=== PATIENT | male | born 1975 | race Caucasian/White ===

== ENCOUNTER 2016-12-02 11:30 | Inpatient (IN) | payer MEDICARE, OTHER ==
[~2016-12-02] VITALS: Ht 175.3 cm; Wt 135.2 kg
[~2016-12-02 11:30] MED LIST: ASPI-785; CARV25TA47 PO; HYDR-1348; KEPP500 PO; LISI10TA5 PO; LOSA25TA12 PO; SIMV20TA6 PO; WARF5TAB73 PO
[2016-12-02] MEDS ORDERED: ASPIRIN 325MG EC TABLET PO ONE (12:00)
[2016-12-02] MEDS ORDERED: MORPHINE SULFATE 4 MG/ML CPJ (NOT FOR IM USE) IV ONE (12:00)
[2016-12-02 12:34] LABS: EOSINOPHILS % 0.9 % (0.0-5.0); HEMATOCRIT. 45.3 % (42.0-52.0); HEMOGLOBIN. 15.2 g/dL (14.0-18.0); LYMPHOCYTES % 17.9 % (20.0-50.0); MEAN CORPUSCULAR HEMOGLOBIN 29.4 pg (28.0-32.0); MEAN CORPUSCULAR HGB CONC 33.6 g/dL (31.0-37.0); MEAN CORPUSCULAR VOLUME 87.6 fL (80.0-94.0); MEAN PLATELET VOLUME 8.5 fl (7.4-10.4); MONOCYTES % 10.2 % (2.0-8.0); PLATELET 262 x1000/uL (130-400); RED BLOOD CELL COUNT 5.17 mill/uL (4.7-6.1); RED CELL DISTRIBUTION WIDTH 14.4 % (11.6-14.6); WHITE BLOOD COUNT 12.3 x1000/uL (4.5-11.0)
[2016-12-02 12:42] LABS: INR 1.1
[2016-12-02 12:45] LABS: ALBUMIN 2.9 g/dL (3.4-5.0); ANION GAP 14; CALCIUM 8.6 mg/dL (8.5-10.1); CARBON DIOXIDE 26 mEq/L (21-32); CHLORIDE 99 mEq/L (98-107); INDEX HEMOLYSI 1 (1-3); INDEX ICTERIC 1 (1-4); INDEX LIPEMIC 1 (1-3); UREA NITROGEN BLOOD 12 mg/dL (7-21)
[2016-12-02 12:51] LABS: ALANINE AMINOTRANSFERASE 28 IU/L (13-61); NT PRO B-TYPE NATRIURETIC PEP 672 pg/mL (5-125); TROPONIN I 0.05 ng/mL (0.00-0.04); eGFR > 60 mL/min (>60)
[2016-12-02] MEDS ORDERED: DEXTROSE 50% WATER 50ML SYRINGE IV PRN ×2 (13:45→14:15)
[2016-12-02] MEDS ORDERED: IPRATROPIUM/ALBUTEROL 0.5-3(2.5)MG/3ML NEB INH PRN (14:15)
[2016-12-02] MEDS ORDERED: HYDROCODONE/ACETAMINOPHEN 5/325MG TABLET PO PRN (14:15)
[2016-12-02] MEDS ORDERED: CLONIDINE 0.1MG TABLET PO PRN (14:15)
[2016-12-02] MEDS ORDERED: ACETAMINOPHEN 325MG TABLET PO PRN (14:15)
[2016-12-02] MEDS ORDERED: ONDANSETRON HCL 4MG/2ML VIAL IV PRN (14:15)
[2016-12-02] MEDS ORDERED: DIPHENHYDRAMINE 50MG/ML VIAL IV PRN (14:15)
[2016-12-02] MEDS: MORPHINE SULFATE 2 MG/ML CPJ (NOT FOR IM USE) IV PRN ×2 (15:32→21:01)
[2016-12-02 16:00] VITALS: BP 116/86
[2016-12-02 16:40] VITALS: BP 116/86
[2016-12-02] MEDS ORDERED: BLOOD SUGAR DIAGNOSTIC STRIP TEST SCH (17:00)
[2016-12-02] MEDS: BLOOD SUGAR DIAGNOSTIC STRIP TEST SCH ×2 (17:09→21:00)
[2016-12-02] MEDS: INSULIN LISPRO 100 UNITS/ML SUBCUT SCH ×2 (17:23→21:04)
[2016-12-02] MEDS: FUROSEMIDE 20MG TABLET PO SCH (17:23)
[2016-12-02] MEDS ORDERED: ATOR10TA PO (17:36)
[2016-12-02] MEDS ORDERED: WARFARIN SODIUM 7.5MG TABLET PO SCH (18:00)
[2016-12-02] MEDS: PIPERACILLIN/TAZ 3.375G PREMIX 50 ML IV SCH (18:05)
[2016-12-02] MEDS ORDERED: INSULIN LISPRO 100 UNITS/ML SUBCUT SCH (18:20)
[2016-12-02 18:51] LABS: PROTHROMBIN TIME 10.7 sec
[2016-12-02 20:00] VITALS: BP 122/78
[2016-12-02] MEDS ORDERED: ATORVASTATIN CALCIUM 20MG TABLET PO SCH (21:00)
[2016-12-02] MEDS ORDERED: VANCOMYCIN 1500MG in DEXTROSE 5% WATER 250ML IV SCH (21:00)
[2016-12-02] MEDS: ENOXAPARIN 150MG/ML SYR SUBCUT SCH (21:03)
[2016-12-02] MEDS: LISINOPRIL 10MG TABLET PO SCH (21:03)
[2016-12-02] MEDS: CARVEDILOL 25MG TABLET PO SCH (21:03)
[2016-12-03] VITALS (9 sets, daily range): BP systolic 91–111; BP diastolic 63–96
[2016-12-03] MEDS: PIPERACILLIN/TAZ 3.375G PREMIX 50 ML IV SCH ×3 (00:02→11:05)
[2016-12-03 00:35] LABS: *AMPHETAMINES SCREEN URINE NEGATIVE (NEGATIVE); *BARBITURATES SCREEN URINE NEGATIVE (NEGATIVE); *BENZODIAZEPINES SCREEN URINE NEGATIVE (NEGATIVE); *COCAINE SCREEN URINE PRESUMTIVE POSITIVE (NEGATIVE); CANNABINOID URINE SCREEN NEGATIVE (NEGATIVE); ECSTASY MDMA SCREEN URINE NEGATIVE (NEGATIVE); METHADONE URINE SCREEN NEGATIVE (NEGATIVE); OPIATES URINE SCREEN PRESUMTIVE POSITIVE (NEGATIVE); PHENCYCLIDINE URINE SCREEN NEGATIVE (NEGATIVE)
[2016-12-03] MEDS: VANCOMYCIN 1 G PREMIX 200 ML IV SCH ×2 (05:57→12:04)
[2016-12-03] MEDS: BLOOD SUGAR DIAGNOSTIC STRIP TEST SCH ×3 (06:13→16:11)
[2016-12-03] MEDS: FUROSEMIDE 20MG TABLET PO SCH ×2 (06:35→17:21)
[2016-12-03 06:38] LABS: INR 1.1
[2016-12-03] MEDS: INSULIN LISPRO 100 UNITS/ML SUBCUT SCH ×3 (06:39→17:23)
[2016-12-03 07:25] LABS: BASOPHILS % 0.7 % (0.0-2.0); EOSINOPHILS % 1.9 % (0.0-5.0); HEMATOCRIT. 43.4 % (42.0-52.0); HEMOGLOBIN. 14.7 g/dL (14.0-18.0); LYMPHOCYTES % 43.4 % (20.0-50.0); MEAN CORPUSCULAR HEMOGLOBIN 29.7 pg (28.0-32.0); MEAN CORPUSCULAR HGB CONC 33.8 g/dL (31.0-37.0); MEAN CORPUSCULAR VOLUME 87.8 fL (80.0-94.0); MEAN PLATELET VOLUME 8.7 fl (7.4-10.4); MONOCYTES % 10.8 % (2.0-8.0); NEUTROPHILS % 43.2 % (40.0-76.0); PLATELET 240 x1000/uL (130-400); RED BLOOD CELL COUNT 4.95 mill/uL (4.7-6.1); RED CELL DISTRIBUTION WIDTH 14.3 % (11.6-14.6)
[2016-12-03 07:38] LABS: ALANINE AMINOTRANSFERASE 28 IU/L (13-61); ALBUMIN 2.8 g/dL (3.4-5.0); ANION GAP 10; CALCIUM 8.7 mg/dL (8.5-10.1); CARBON DIOXIDE 29 mEq/L (21-32); CHLORIDE 100 mEq/L (98-107); HDL CHOLESTEROL 44 mg/dL (40-59); INDEX HEMOLYSI 1 (1-3); INDEX ICTERIC 1 (1-4); INDEX LIPEMIC 1 (1-3); LDL CHOLESTEROL 148 mg/dL (5-100); TRIGLYCERIDE 194 mg/dL (0-150); TROPONIN I 0.03 ng/mL (0.00-0.04); UREA NITROGEN BLOOD 12 mg/dL (7-21); eGFR > 60 mL/min (>60)
[2016-12-03] MEDS: CARVEDILOL 25MG TABLET PO SCH (08:55)
[2016-12-03] MEDS: LISINOPRIL 10MG TABLET PO SCH (08:55)
[2016-12-03] MEDS: MORPHINE SULFATE 2 MG/ML CPJ (NOT FOR IM USE) IV PRN ×2 (08:57→14:58)
[2016-12-03] MEDS: ENOXAPARIN 150MG/ML SYR SUBCUT SCH (09:23)
[2016-12-03] MEDS ORDERED: INSULIN DETEMIR UD 100 UNITS/ML SYR SUBCUT SCH (11:00)
[2016-12-03] MEDS ORDERED: SILVER SULFADIAZINE 1% CREAM 50GM TOP SCH (12:00)
[2016-12-03 12:23] LABS: INR 1.1; PROTHROMBIN TIME 11.5 sec
[2016-12-03] MEDS ORDERED: ENOXAPARIN 150MG/ML SYR SUBCUT SCH ×2 (16:00→21:00)
[2016-12-03] MEDS ORDERED: PIPERACILLIN/TAZ 3.375G PREMIX 50 ML IV SCH (18:00)
[2016-12-03] MEDS ORDERED: WARFARIN SODIUM 10MG TABLET PO NR (18:00)
[2016-12-03] MEDS ORDERED: ATORVASTATIN CALCIUM 10MG TABLET PO SCH (21:00)
[2016-12-03] MEDS ORDERED: VANCOMYCIN 1 G PREMIX 200 ML IV SCH (22:00)
== END 2016-12-03 20:25 | disposition short-term general hospital (02) | DRG 311 ==
LOC: ER 13:30 → 8WST 14:00
PROVIDERS: ADMIT Internal Medicine; ATTEND Internal Medicine
DX: I24.9 Acute ischemic heart disease, unspecified (principal); E87.1 Hypo-osmolality and hyponatremia; I42.0 Dilated cardiomyopathy; L03.116 Cellulitis of left lower limb; E11.65 Type 2 diabetes mellitus with hyperglycemia; F10.10 Alcohol abuse, uncomplicated; F14.90 Cocaine use, unspecified, uncomplicated; F17.200 Nicotine dependence, unspecified, uncomplicated; I11.0 Hypertensive heart disease with heart failure; I50.9 Heart failure, unspecified; I25.10 Atherosclerotic heart disease of native coronary artery without angina pectoris; I49.3 Ventricular premature depolarization; D72.829 Elevated white blood cell count, unspecified; L97.529 Non-pressure chronic ulcer of other part of left foot with unspecified severity; Z79.01 Long term (current) use of anticoagulants; Z82.49 Family history of ischemic heart disease and other diseases of the circulatory system; Z83.3 Family history of diabetes mellitus; Z95.1 Presence of aortocoronary bypass graft; Z95.2 Presence of prosthetic heart valve; Z79.4 Long term (current) use of insulin
CPT/HCPCS: 36415; 71010; 73630; 80048; 80053; 80061; 80305; 82962; 83036; 83735; 83880; 84484; 85025; 85610; 87040; 87086; 93005; 93306; 93923; 93970; 96374; 99285; J1650; J1815; J2270; J2543; J3370; J7040; J7060